=== PATIENT | male | born 1975 | race Two or more races ===

== ENCOUNTER → 2017-11-15 | Outpatient (CLI) | payer BC ==
[2017-11-15 16:19] LABS: BILIRUBIN,URINE NEGATIVE (NEG); CLARITY,URINE CLEAR; COLOR,URINE YELLOW; GLUCOSE,URINE NEGATIVE (NEG); NITRITE,URINE NEGATIVE (NEG); PROTEIN,URINE NEGATIVE (NEG-TRACE); UROBILINOGEN,URINE 0.2 mg/dL (0.2 mg/dL)
[2017-11-15 16:25] LABS: BACTERIA,URINE 0 /HPF (0-FEW); RBC,URINE 0 /HPF (0-2); SPERM,URINE PRESENT /HPF; WBC,URINE 0 /HPF (0-4)
[2017-11-15 17:58] LABS: ALBUMIN 4.1 g/dL (3.4-5.0); ALK PHOS 97 U/L (46-116); ANION GAP 19 (6-14); BLOOD UREA NITROGEN 12 mg/dL (8-26); BUN/CREATININE RATIO 13 (6-20); CARBON DIOXIDE 20 mmol/L (21-32); CHLORIDE 99 mmol/L (98-107); CHOLESTEROL 118 mg/dL (0-200); CHOLESTEROL/HDL RATIO 4.1; CREATININE 0.9 mg/dL (0.7-1.3); GFR 93.5; GLUCOSE 173 mg/dL (70-99); HDLC 29 mg/dL (40-60); NON-HDL CHOLESTEROL 89 mg/dL (0-129); POTASSIUM 3.9 mmol/L (3.5-5.1); SODIUM 138 mmol/L (136-145); TOTAL BILIRUBIN 0.4 mg/dL (0.2-1.0); TOTAL PROTEIN 8.1 g/dL (6.4-8.2); TRIGLYCERIDES 795 mg/dL (0-150); VLDLC 159 mg/dL (0-40)
[2017-11-15 18:25] LABS: THYROID STIM HORMONE (TSH) 4.001 uIU/mL (0.358-3.74)
[2017-11-15 18:25] LABS: FREE T4 1.01 ng/dL (0.76-1.46)
[2017-11-15 19:07] LABS: AST (SGOT) 26 U/L (15-37)
[2017-11-15 19:08] LABS: ALT (SGPT) 57 U/L (16-63)
[2017-11-16 03:15] LABS: HEMOGLOBIN A1C 5.9 % (4.8-5.6)
== END | disposition home or self-care (01) ==
LOC: LAB 15:52
DX: E13.9 Other specified diabetes mellitus without complications (principal); E78.1 Pure hyperglyceridemia
CPT/HCPCS: 36415; 80053; 80061; 81001; 83036; 84439; 84443

== ENCOUNTER → 2019-02-10 | Day surgery (SDC) | payer BC ==
[~2019-02-10] MED LIST: CLOB15CR TP; DESO15OI3 TP; ESOM20TA PO; FAMO1TAB3 PO; HYDROmorphone 2 MG/ML VIAL IV PRN; IV RINGERS,LACTATED 1000ML 1,000 ML IV SCH; LIDOCAINE 1% PF 2 ML VIAL. ID PRN; LIDOCAINE 2% PF 5 ML VIAL. ONE; METF500T16 PO; MORPHINE SULFATE 2 MG/ML VIAL. IV PRN; ONDANSETRON PF 4 MG/2 ML VIAL. IV PRN; PROCHLORPERAZINE 10 MG/2 ML VIAL. IV PRN; PROPOFOL 20 ML IV ONE; RANI150T2 PO; SIMV20TA PO; [UNRECOGNIZED DRUG - CODE] TP; fentaNYL PF VIAL 100 MCG/2 ML VIAL IV PRN
[2019-02-10 10:55] VITALS: BP 106/66
--- NOTE | 2019-02-11 19:32 | CONS ---
DATE OF CONSULTATION: 02/10/2019 REFERRING PHYSICIAN: Hari Yang M.D. REASON FOR CONSULTATION: Epigastric pain, nausea, status post cholecystectomy. HISTORY OF PRESENT ILLNESS: A 43-year-old male with past medical history significant for diabetes, status post cholecystectomy, history of colonic polyps, seen with persistent epigastric pain worsening ____ Nexium 40 mg daily without improvement. There is no dysphagia. Weight is stable despite poor appetite ____ continued issues, requests additional evaluation. PAST MEDICAL HISTORY: Diabetes, anemia, history of colonic polyps, and GERD. ALLERGIES: None. MEDICATIONS: Include ____, Nexium 20 mg daily and metformin 500 mg daily for diabetes. FAMILY HISTORY AND SOCIAL HISTORY: Nonsmoker and nondrinker. Family history is significant for diabetes in multiple family members. PAST SURGICAL HISTORY: Status post Lasik eye surgery, septoplasty, adenoidectomy, tonsillectomy, and cholecystectomy. REVIEW OF SYSTEMS: Per records. PHYSICAL EXAMINATION: GENERAL: Reveals a well-nourished, well-developed male, in no acute distress. VITAL SIGNS: Temperature 97.5, pulse 58, respirations 20. HEENT: Normocephalic and atraumatic. Pupils and extraocular muscles are not tested. Sclerae anicteric. NECK: Supple. LUNGS: Clear. CARDIOVASCULAR: Reveals S1, S2 without S3, S4 or appreciable murmur. ABDOMEN: Soft abdomen, normal bowel sounds, without appreciable hepatosplenomegaly ____ deep palpation. EXTREMITIES: Reveals no cyanosis, clubbing or edema. IMPRESSION AND PLAN: Abdominal pain, status post cholecystectomy, diabetes, gastroparesis, gastroesophageal reflux disease, De La Fuente's; malignancy, ulcers in the differential recommend ____ further assess. If this is unrevealing, then further consideration of possible gastric emptying study would be pursued. HERLINDA PRICE MD DR: AMANDA/kendell JOB#: [id number] / [id number]
== END ==
LOC: ENDOS 09:08
PROVIDERS: ATTEND Internal Medicine Gastroenterology
DX: K29.50 Unspecified chronic gastritis without bleeding (principal); K21.9 Gastro-esophageal reflux disease without esophagitis; E11.9 Type 2 diabetes mellitus without complications; Z86.010 Personal history of colon polyps; Z90.49 Acquired absence of other specified parts of digestive tract; Z98.890 Other specified postprocedural states; Z79.899 Other long term (current) drug therapy
CPT/HCPCS: 43235; J2001; J2704

== ENCOUNTER → 2020-03-04 | Outpatient (CLI) | payer BC ==
[2019-02-10 10:55] VITALS: BP 106/66
[~2020-03-04] MED LIST changes: +ATOR40TA59 PO; +FENO145T3 PO; +GADOTERATE 7.5 MMOL/15ML VIAL. IVP ONE; -HYDROmorphone 2 MG/ML VIAL IV PRN; -IV RINGERS,LACTATED 1000ML 1,000 ML IV SCH; -LIDOCAINE 1% PF 2 ML VIAL. ID PRN; -LIDOCAINE 2% PF 5 ML VIAL. ONE; -MORPHINE SULFATE 2 MG/ML VIAL. IV PRN; -ONDANSETRON PF 4 MG/2 ML VIAL. IV PRN; -PROCHLORPERAZINE 10 MG/2 ML VIAL. IV PRN; -PROPOFOL 20 ML IV ONE; -fentaNYL PF VIAL 100 MCG/2 ML VIAL IV PRN
--- NOTE | 2020-03-04 16:04 | KCIC ---
MRI of the abdomen to include a MRCP without and with contrast 03/04/2020 CLINICAL HISTORY: History of acute pancreatitis. TECHNIQUE: Unenhanced T2-weighted axial and coronal, fat saturated T2-weighted axial, diffusion-weighted axial and in and out of phase T1-weighted axial images of the abdomen were obtained. Additionally thin section fat saturated T2-weighted coronal images of the abdomen were obtained. Multiplanar 3-D MIP reconstructed images of the biliary system were obtained for an MRCP. After the intravenous administration of 15 cc of DOTAREM, dynamic enhanced fat saturated T1-weighted axial images of the abdomen were obtained. FINDINGS: No previous imaging studies are available for comparison. The liver, spleen, pancreas, adrenal glands and kidneys are within normal limits. No pancreatic pseudocyst is seen. The abdominal aorta tapers normally. No free fluid is seen within the abdomen. There is no evidence of bowel obstruction. The marrow signal of the visualized bony structures is within normal limits. MRCP images demonstrate nonvisualization of the gallbladder consistent with a cholecystectomy. The common hepatic duct, left and right hepatic ducts and their branches and the common bile duct along with the visualized main pancreatic duct are within normal limits. No filling defect is seen. No area of abnormal contrast enhancement is noted. IMPRESSION: 1. Post cholecystectomy. 2. Otherwise negative study. Electronically signed by: Lee Horne MD (03/04/2020 4:00 PM) [id number]
== END | disposition home or self-care (01) ==
LOC: KCIC MRI 08:00
PROVIDERS: ATTEND Internal Medicine
DX: K85.90 Acute pancreatitis without necrosis or infection, unspecified (principal); Z90.49 Acquired absence of other specified parts of digestive tract
CPT/HCPCS: 74183; A9575